=== PATIENT | male | born 1955 | race Caucasian/White ===

== ENCOUNTER 2022-02-28 14:57 | Inpatient (IN) | payer MEDICARE ==
[2022-02-28 16:28] LABS: #Basophils 0.1 10x3/uL (0.0-0.2); #Eosinphils 0.2 10x3/uL (0.0-0.5); #Monocytes 0.5 10x3/uL (0.0-1.1); #Neutrophils 5.5 10x3/uL (1.5-8.4); %Basophils 0.6 % (0.0-2.0); %Eosinophils 1.9 % (0.0-6.0); %Lymphocytes 19.8 % (18.0-47.0); %Monocytes 6.6 % (0.0-10.0); %Neutrophils 70.8 % (40.0-75.0); Mean Corpuscular HGB CONC 33.5 g/dL (32.0-36.0); Mean Corpuscular Hemoglobin 37.7 pg (27.0-33.0); Mean Corpuscular Volume 112.3 fl (81.2-95.1); Mean Platelet Volume 9.9 fl (7.4-10.4); Platelet Count 355 10x3/uL (150-450); Red Blood Cell (RBC) Count 2.92 10x6/uL (4.32-5.72); White Blood Cell (WBC) Count 7.7 10x3/uL (3.5-10.5)
[2022-02-28 16:36] LABS: ALT (SGPT) 55 U/L (8-55); AST (SGOT) 57 U/L (5-34); Albumin 3.4 g/dL (3.4-4.8); Alcohol Less than 10 mg/dL (Less than 10); Alkaline Phosphatase 112 U/L (40-110); Anion Gap 15 mmol/L (10-20); BUN (Urea Nitrogen) 6 mg/dL (8.4-25.7); Bilirubin, Total 1.4 mg/dL (0.2-1.2); Calc. Creatinine Clearance 0 mL/min (70-130); Calcium 8.5 mg/dL (7.8-10.44); Carbon Dioxide 28 mmol/L (23-31); Chloride 106 mmol/L (98-107); Estimated GFR 96; Globulin 2.8 g/dL (2.4-3.5); Glucose 82 mg/dL (80-115); Potassium 3.5 mmol/L (3.5-5.1); Protein, Total 6.2 g/dL (5.8-8.1); Sodium 145 mmol/L (136-145)
[2022-02-28] MEDS ORDERED: Aspirin Chewable 81 MG TAB ONE (17:57)
[2022-02-28] MEDS ORDERED: Furosemide 40 MG/4 ML VIAL ONE (17:57)
[2022-02-28] MEDS ORDERED: Nitroglycerin 2% Ointment 1 INCH/1 GM Packet ONE (17:58)
[2022-02-28 19:10] LABS: Bilirubin Neg (Negative); Blood, Urine Negative (Negative); Clarity Clear (Clear); Glucose, Urine (Dipstick) Normal (Negative); Ketone, Urine 5 mg/dL (Negative); Leukocyte Negative (Negative); Nitrite Negative (Negative); Protein, Urine (Dipstick) 15 mg/dl (Neg-Trace); Specific Gravity, Urine 1.015 (1.002-1.036); Urobilinogen Normal mg/dL (Less than 2)
[2022-02-28] MEDS ORDERED: Ondansetron PF 4 MG/2 ML Vial IVP PRN (20:12)
[2022-02-28] MEDS ORDERED: Senokot S 8.6-50 MG TAB PO PRN (20:12)
[2022-02-28] MEDS ORDERED: Guaifenesin DM 100-10/5 ML UDCUP PO PRN (20:12)
[2022-02-28] MEDS ORDERED: Acetaminophen 325 MG TAB PO PRN (20:12)
[2022-02-28] MEDS ORDERED: Calcium Carbonate 500 MG ChewTAB PO PRN (20:12)
[2022-02-28] MEDS ORDERED: Potassium Chloride 20 MEQ TAB PO SCH (22:00)
[2022-02-28 22:15] VITALS: BMI 33.1
[2022-02-28] MEDS ORDERED: Famotidine 20 MG TAB PO SCH (22:15)
[2022-02-28] MEDS: Cefepime 1 GM in Sodium Chloride 0.9% 100 ML IVPB SCH (22:55)
[2022-03-01] MEDS ORDERED: Nitroglycerin 2% Ointment 1 INCH/1 GM Packet TOP SCH (00:01)
[2022-03-01 04:53] LABS: #Basophils 0.1 10x3/uL (0.0-0.2); #Eosinphils 0.2 10x3/uL (0.0-0.5); #Monocytes 0.5 10x3/uL (0.0-1.1); #Neutrophils 3.8 10x3/uL (1.5-8.4); %Basophils 0.9 % (0.0-2.0); %Eosinophils 3.4 % (0.0-6.0); %Lymphocytes 18.5 % (18.0-47.0); %Monocytes 8.6 % (0.0-10.0); %Neutrophils 68.4 % (40.0-75.0); Hemoglobin 10.1 g/dL (13.5-17.5); Mean Corpuscular Hemoglobin 37.4 pg (27.0-33.0); Mean Platelet Volume 9.7 fl (7.4-10.4); Platelet Count 298 10x3/uL (150-450); White Blood Cell (WBC) Count 5.6 10x3/uL (3.5-10.5)
[2022-03-01 05:03] LABS: Anion Gap 14 mmol/L (10-20); BUN (Urea Nitrogen) 6 mg/dL (8.4-25.7); Calc. Creatinine Clearance 117 mL/min (70-130); Calcium 7.9 mg/dL (7.8-10.44); Carbon Dioxide 29 mmol/L (23-31); Chloride 104 mmol/L (98-107); Estimated GFR 97; Glucose 79 mg/dL (80-115); Potassium 3.6 mmol/L (3.5-5.1); Sodium 143 mmol/L (136-145)
[2022-03-01] MEDS ORDERED: hydrALAZINE 25 MG TAB PO SCH (05:15)
[2022-03-01] MEDS: Mometasone/Formoterol 200/5 60 PUFF INH SCH ×2 (06:30→19:55)
[2022-03-01 06:33] LABS: Platelet Morphology Comment Appears Adequate; RBC Morphology Normal
[2022-03-01] MEDS: Multivitamin W/ Minerals 1 TAB PO SCH (08:59)
[2022-03-01] MEDS: Furosemide 20 MG/2 ML VIAL SLOW IVP SCH ×2 (08:59→14:04)
[2022-03-01] MEDS: Enoxaparin Sodium 40 MG/0.4 ML SYRINGE SC SCH (08:59)
[2022-03-01] MEDS: Famotidine 20 MG TAB PO SCH ×2 (08:59→20:05)
[2022-03-01] MEDS: Thiamine 100 MG TAB PO SCH (08:59)
[2022-03-01] MEDS: Folic Acid 1 MG TAB PO SCH (08:59)
[2022-03-01] MEDS ORDERED: Lisinopril 5 MG TAB PO SCH (09:00)
[2022-03-01] MEDS: Cefepime 1 GM in Sodium Chloride 0.9% 100 ML IVPB SCH ×2 (11:26→22:26)
[2022-03-02 05:31] VITALS: TEMP 97.1
[2022-03-02] MEDS: Furosemide 20 MG/2 ML VIAL SLOW IVP SCH (06:31)
[2022-03-02] MEDS: Mometasone/Formoterol 200/5 60 PUFF INH SCH (07:55)
[2022-03-02] MEDS: Folic Acid 1 MG TAB PO SCH (08:23)
[2022-03-02] MEDS: Enoxaparin Sodium 40 MG/0.4 ML SYRINGE SC SCH (08:23)
[2022-03-02] MEDS: Multivitamin W/ Minerals 1 TAB PO SCH (08:24)
[2022-03-02] MEDS: Thiamine 100 MG TAB PO SCH (08:24)
[2022-03-02] MEDS: Famotidine 20 MG TAB PO SCH (08:24)
[2022-03-02] MEDS ORDERED: Lisinopril 10 MG TAB PO SCH (09:00)
[2022-03-02] MEDS: Cefepime 1 GM in Sodium Chloride 0.9% 100 ML IVPB SCH (10:32)
[2022-03-02 10:54] VITALS: BP 142/67
== END 2022-03-02 11:36 | disposition home or self-care (01) | DRG 291 ==
LOC: CSHERS 14:57 → CSHTELE 22:03
PROVIDERS: ADMIT Student in an Organized Health Care Education/Training Program; ATTEND Internal Medicine
PROC: 8E0ZXY6 Isolation (ICD-10-PCS; principal; 2022-02-28)
DX: I11.0 Hypertensive heart disease with heart failure (principal); I50.31 Acute diastolic (congestive) heart failure; U07.1 COVID-19; J15.9 Unspecified bacterial pneumonia; Z66 Do not resuscitate; J44.9 Chronic obstructive pulmonary disease, unspecified; F10.10 Alcohol abuse, uncomplicated; E66.9 Obesity, unspecified; D53.9 Nutritional anemia, unspecified; E04.1 Nontoxic single thyroid nodule; Z91.14 Patient's other noncompliance with medication regimen; Z82.49 Family history of ischemic heart disease and other diseases of the circulatory system; Z68.32 Body mass index [BMI] 32.0-32.9, adult; Z79.899 Other long term (current) drug therapy; Z79.51 Long term (current) use of inhaled steroids
CPT/HCPCS: 36415; 71045; 80048; 80053; 80307; 81003; 82550; 82607; 83605; 83880; 84145; 84443; 84484; 85025; 93005; 93970; 94760; 96374; J0692; J1650; J1940; J1956; J3490; U0003; U0005